=== PATIENT | female | born 1950 | race Caucasian/White ===

== ENCOUNTER 2016-09-27 16:48 | Emergency (ER) | payer MEDICARE ==
[~2016-09-27] VITALS: Ht 162.6 cm; Wt 74.1 kg
[~2016-09-27 16:48] MED LIST: FOSI10TA4 PO; HYDR12.56 PO; HYDR200T42 PO; LORT7.5T3 PO; SIMV5TAB32 PO; ZOLO20CO PO
[2016-09-27 16:59] VITALS: BP 146/86; PULSE 83; RESP 16; TEMP 98.9; O2SAT 99
[2016-09-27] MEDS ORDERED: SERT-129 PO (17:16)
[2016-09-27] MEDS ORDERED: LISI-515 PO (17:16)
[2016-09-27] MEDS ORDERED: ATOR10TA15 PO (17:16)
[2016-09-27] MEDS ORDERED: LORA-373 PO (17:16)
[2016-09-27] MEDS ORDERED: HYDR25TA5 PO (17:16)
[2016-09-27] MEDS ORDERED: MONT10TA4 PO (17:16)
[2016-09-27] MEDS ORDERED: TETANUS/DIPHTHERIA TOXOID ADULT 0.5 ML VIAL IM ONE (17:45)
[2016-09-27] MEDS ORDERED: BUPIVACAINE HCL PF 0.5% 10 ML VIAL INFIL ONE (17:45)
[2016-09-27] MEDS ORDERED: LIDOCAINE HCL 1% 50 ML VIAL INFIL ONE (17:45)
--- NOTE | 2016-09-27 18:05 | PD ---
HPI Chief Complaint: Laceration/Skin Injury Time Seen by Provider: 17:30 Travel History International Travel<30 days: No Contact w/Intl Traveler<30days: No Traveled to known affect area: No History of Present Illness HPI Patient is a 65-year-old female presenting with injury to the left distal index finger. Approximately one hour prior to exam she was using an immersion blender snuff when she put her finger near the end of it and accidentally pressed the trigger. She denies any loss of range of motion or sensation disturbance. Hemostasis achieved with pressure. She is not on aspirin or anticoagulants. She denies diabetes, asthma disease or immunocompromised states. Last tetanus vaccine was greater than 5 years. PFSH Past Medical History Arthritis: Yes Asthma: No Autoimmune Disease: No Depression: Yes Heart Rhythm Problems: No Cardiovascular Problems: Yes (htn on meds, ) High Cholesterol: Yes Chest Pain: No COPD: No Cerebrovascular Accident: No Diabetes: No Diminished Hearing: No GERD: No Glaucoma: No Headaches: No Hepatitis: No Hiatal Hernia: Yes Hypertension: Yes Kidney Stones: No Neurologic: Yes (SCIATICA) Respiratory: Yes (asthma) Immunizations Current: Yes Myocardial Infarction: No Renal Failure: No Seizures: No Sleep Apnea: No Thyroid Disease: No Ulcer: No Tetanus Vaccination: > 5 Years Influenza Vaccination: Yes ?: Not Menopausal: Yes Past Surgical History AICD: No Cardiac Surgery: No Cholecystectomy: Yes Ear Surgery: No Endocrine Surgery: No Eye Surgery: No Genitourinary Surgery: No Gynecologic Surgery: Yes Hysterectomy: Yes Oral Surgery: No Pacemaker: No Thoracic Surgery: No Other Surgery: Yes (HYSTERECTOMY, CHOLECYSTECTOMY) Social History Alcohol Use: Yes (ONE PER WEEK) Tobacco Use: Yes (< 1 PACK PER DAY) Substance Use: No Allergies-Medications (Allergen,Severity, Reaction): Coded Allergies: No Known Allergies (Verified , 09/27/16) Reported Meds & Prescriptions Reported Meds & Active Scripts Active Cephalexin 500 Mg Tab 500 Mg PO Q6H Reported Lorazepam 0.5 Mg Tab 0.5 Mg PO Q8H PRN Montelukast (Montelukast Sodium) 10 Mg Tab 10 Mg PO HS Hydrochlorothiazide 25 Mg Tab 25 Mg PO DAILY Sertraline (Sertraline HCl) 100 Mg Tab 100 Mg PO DAILY Lisinopril 20 Mg Tab 20 Mg PO DAILY Atorvastatin (Atorvastatin Calcium) 10 Mg Tab 10 Mg PO HS Review of Systems Musculoskeletal: Positive: Other (see the history of present illness) Skin: Positive Other (see the history of present illness) Neurologic: No: Weakness, Focal Abnormalities, Paresthesia, Sensory Disturbance Physical Exam Narrative GENERAL: Well-developed and well-nourished adult female in no acute distress. SKIN: Warm and dry. Good turgor without tenting. HEAD: Normocephalic and atraumatic. CARDIOVASCULAR: Regular rate and rhythm without murmurs, rubs, clicks or gallops. Radial pulses 2+ bilaterally. Capillary refill less than 2 seconds distal tip of the second digit left hand. RESPIRATORY: Clear to auscultation bilaterally with symmetrical rise and fall, no distress or use of accessory muscles. MUSCULOSKELETAL: Distal aspect of the second digit left hand on the volar surface has multiple lacerations and tissue avulsions. Bleeding is minimal. No deep structures or medially visible and the patient has normal range of motion in flexion and extension of the digit even with isolation of the IP joints. The nail and nail bed are not affected. No visible contaminants. No gait disturbances. Patient freely moving all four extremities spontaneously. Extremities without clubbing, cyanosis, or edema. No obvious deformities. NEUROLOGIC: CN II-XII grossly intact. Awake and alert. Motor grossly within normal limits. Sensation intact to the distal, radial and ulnar aspect of the second digit left hand. Normal speech. PSYCHIATRIC: Appropriate mood and affect; insight and judgment normal. Data Data Last Documented VS Vital Signs Date Time Temp Pulse Resp B/P Pulse Ox O2 Delivery O2 Flow Rate FiO2 09/27/16 16:59 98.9 83 16 146/86 99 Orders Finger ([id number]) (09/27/16 17:37) Bupivacaine Pf 0.5% Inj (Marcaine Pf 0.5 (09/27/16 17:45) Lidocaine 1% Inj (50 Ml) (Xylocaine 1% I (09/27/16 17:45) Tetanus/Diphtheria Tox Adult (Tetanus/Di (09/27/16 17:45) Cephalexin (Keflex) (09/27/16 19:30) MDM Medical Decision Making Medical Screen Exam Complete: Yes Emergency Medical Condition: Yes Interpretation(s) Last 24 hours Impressions Finger X-Ray 09/27/16 5517 Signed Impressions: Service Date/Time: Tuesday, September 27, 2016 18:03 - CONCLUSION: Extensive soft tissue injury without fracture. Aurelio Bill MD Differential Diagnosis Finger laceration versus tissue avulsion versus finger fracture versus neurovascular injury versus tendon injury Narrative Course Patient's 65-year-old female presenting one hour after sticking her finger in an immersion blender snuff and accidentally pressing the trigger. Bleeding is minimal at this point. She is neurovascularly intact and has normal range of motion in the finger. Significant number of lacerations which will be difficult to repair given the avulsions are present as well. None of them cross the joint line however. Tetanus vaccine update it today. X-ray shows no foreign body or fracture. Was cleansed and repaired per Procedure narrative. Pressure dressing was applied. Recommend follow-up with hand specialist in 2-3 days. Patient given Keflex for prophylaxis, first dose given here.See discharge paperwork for further instructions. The plan was discussed with the patient who acknowledged their understanding and agreement. Reinforced the follow-up with primary care is critically important. Patient instructed on emergent conditions that should prompt return to ED. Procedures Procedure Narrative LACERATION LOCATION: Distal left index fingers Description: 7 linear parallel lacerations of varying depths with tissue avulsion, longus is 1.5 cm NUMBER OF STITCHES/GÓMEZ: 4 simple interrupted REPAIR: The area of the laceration was prepped with Betadine and sterilely draped. A digital block was performed with 2.5 cc of a 50-50 mix of 0.5% bupivacaine and 1% lidocaine. The wound was copiously irrigated and explored without evidence of foreign body, tendon injury or neurovascular injury. The wound was loosely approximated using 4-0 Prolene. This was a single layer repair. A sterile dressing was applied. The patient was advised to keep the dressing clean and dry. Patient tolerated the procedure well. Diagnosis Primary Impression: Finger avulsion Qualified Code: S61.209A - Finger avulsion, initial encounter Additional Impression: Finger laceration Qualified Code: S61.219A - Finger laceration, initial encounter Referrals: Lizeth Paez MD Patient Instructions: Finger Laceration (ED), General Instructions Additional Instructions: Keep bandage on for 48 hours then change daily When changing bandage wash area with soap and water Avoid swimming or submerging wound in any water(bath, [place], pool, ocean, etc) Take medications as prescribed Your medications may cause drowsiness. Do not take with alcohol or sedatives. Do not operate a motor vehicle or heavy machinery while on medication. Follow-up with an specialist in 2-3 days Return to the ED for any acute worsening of symptoms including swelling, warmth , spreading redness, pustular drainage, fever Med/Other Pt SpecificInfo: Prescription(s) given Scripts Tramadol 50 Mg Tab50 Mg PO Q6H PRN (PAIN) #12 TAB Ref 0 Prov:Jovanny Cabello MD 09/27/16 Cephalexin 500 Mg [id number] Mg PO Q6H #28 TAB Prov:Jovanny Cabello MD 09/27/16 Disposition: 01 DISCHARGE HOME Condition: Stable Mahendra Santoro III Sep 27, 2016 18:05
--- NOTE | 2016-09-27 18:23 | RADHPO ---
EXAM DATE/TIME: 09/27/2016 18:03 [facility] COMPARISON: No previous studies available for comparison. INDICATIONS : Left hand, second digit pain after getting caught in a winding rack operator. MEDICAL HISTORY : None. SURGICAL HISTORY : None. ENCOUNTER: Initial ACUITY: 1 day PAIN SCORE: 10/10 LOCATION: Left hand, second digit FINDINGS: Examination of the second digit of the left hand demonstrates no evidence of fracture or dislocation. No radiopaque foreign bodies are seen. Soft tissue injury distal second digit. CONCLUSION: Extensive soft tissue injury without fracture. Aurelio Bill MD on September 27, 2016 at 18:21 Board Certified Radiologist. This report was verified electronically.
[2016-09-27] MEDS ORDERED: TRAM50TA PO (19:29)
[2016-09-27] MEDS ORDERED: CEPH500T PO (19:29)
[2016-09-27] MEDS ORDERED: CEPHALEXIN MONOHYDRATE 500 MG CAP PO ONE (19:30)
== END 2016-09-27 19:46 | disposition home or self-care (01) ==
LOC: PHEFT 16:48
DX: S61.211A Laceration without foreign body of left index finger without damage to nail, initial encounter (principal); Z23 Encounter for immunization; E78.00 Pure hypercholesterolemia, unspecified; I10 Essential (primary) hypertension; F17.210 Nicotine dependence, cigarettes, uncomplicated; W27.4XXA Contact with kitchen utensil, initial encounter; Y93.89 Activity, other specified; Y92.9 Unspecified place or not applicable
CPT/HCPCS: 12001; 73140; 90471; 90714